=== PATIENT | female | born 1985 | race Caucasian/White ===

== ENCOUNTER 2017-02-23 11:42 | Day surgery (SDC) | payer OTHER ==
[~2017-02-23] VITALS: Ht 165.1 cm; Wt 170.6 kg
[~2017-02-23 11:42] MED LIST: "\\\"MUSCLE RELAXER\\\""; ACID CONTROL75 MG PO; BUSPAR10 MG PO; CLOTRIMAZOLE-BE15 GM; CYMBALTA30 MG PO; DESYREL12.5 MG; DICLOFENAC CREAM TP; DULOXETINE HCL30 MG PO; FERROUS GLUCON324 MG PO; GABAPENTIN300 MG; GABAPENTIN600 MG PO; HCTZ; HYDROCHLOROTHIA25 MG; HYDROCHLOROTHIA25 MG PO; IBUPROFEN800 MG PO; IMPLANON68 MG SQ; LIDOCAINE HCL20 ML MM; LYRICA150 MG PO; MACROBID100 MG PO; METHOCARBAMOL750 MG PO; MICROGESTIN FE1 EAC1 PO; MOTRIN600 MG PO; MOTRIN800 MG PO; NORFLEX100 MG; OXYCODONE-APAP1 EAC6; OXYCODONE-APAP1 EAC6 PO; PEN-VEE K,VEET500 MG PO; PERCOCET 5/31 TABLET PO; PREDNISONE10 M1 PO; PREDNISONE20 M1 PO; PREDNISONE20 MG PO; PRENATAL TABLE1 EAC3 PO; PRENATE MINI S1 EACH PO; PROMETHAZINE HC25 M1 PO; RANITIDINE HCL150 M1 PO; ROBITUSSIN100 MG/5 M PO; TIZANIDINE HCL2 MG PO; TIZANIDINE HCL4 M1 PO; TIZANIDINE HCL4 MG; VENTOLIN HFA18 GM IH; VIBRAMYCIN100 MG PO; VITAMIN B-625 MG PO; WATER PILL; WELLBUTRIN XL300 MG PO
[2017-02-23 12:18] LABS: HEMATOCRIT 44.4 % (36.0-46.0); MCHC 31.5 G/DL (30.0-36.0); MCV 82.4 FL (83-99); PLATELET COUNT 331 K/uL (156-360); RBC DIS.WIDTH-CV 13.2 % (11.8-14.6); RBC DIS.WIDTH-SD 39.9 % (39-53); RED BLOOD COUNT 5.39 M/uL (3.80-5.20)
[2017-02-23 12:20] VITALS: BP 125/58
[2017-02-23 17:05] VITALS: BP 111/53
[2017-02-23 17:51] VITALS: BP 105/56
== END 2017-02-23 17:50 | disposition home or self-care (01) ==
LOC: SDC 11:42
PROVIDERS: Neurological Surgery
PROC: 0JWT0MZ Revision of Stimulator Generator in Trunk Subcutaneous Tissue and Fascia, Open Approach (ICD-10-PCS; principal; 2017-02-23)
DX: T85.113A Breakdown (mechanical) of implanted electronic neurostimulator, generator, initial encounter (principal); M47.26 Other spondylosis with radiculopathy, lumbar region; M51.16 Intervertebral disc disorders with radiculopathy, lumbar region; G89.29 Other chronic pain; M96.1 Postlaminectomy syndrome, not elsewhere classified; E66.9 Obesity, unspecified; Z68.43 Body mass index [BMI] 50.0-59.9, adult; J45.909 Unspecified asthma, uncomplicated; Z87.891 Personal history of nicotine dependence
CPT/HCPCS: 85027; J0330; J0690; J1100; J2250; J2405; J2765; J3010; J3370; Q0175

== ENCOUNTER 2017-08-24 09:47 | Day surgery (SDC) | payer OTHER ==
[~2017-08-24] VITALS: Ht 165.1 cm; Wt 170.5 kg
[~2017-08-24 09:47] MED LIST changes: +METHOCARBAMOL500 MG PO; +NEURONTIN300 MG PO
[2017-08-24 10:27] VITALS: BP 107/68
[2017-08-24 10:27] LABS: HEMATOCRIT 43.4 % (36.0-46.0); HEMOGLOBIN 14.1 G/DL (11.9-15.5); MCH 26.7 PG (29.0-34.0); MCHC 32.5 G/DL (30.0-36.0); MCV 82.2 FL (83-99); PLATELET COUNT 277 K/uL (156-360); RBC DIS.WIDTH-CV 13.5 % (11.8-14.6); RBC DIS.WIDTH-SD 40.3 % (39-53); RED BLOOD COUNT 5.28 M/uL (3.80-5.20)
[2017-08-24 10:50] LABS: CHLORIDE 105 MEQ/L (99-109); CREATININE 0.7 MG/DL (0.6-1.3); GFR ESTIMATE (CALCULATED) > 59 mL/min/; GLUCOSE 111 mg/dL (70-99); POTASSIUM 4.4 MEQ/L (3.7-5.4); SODIUM 138 MEQ/L (136-147); UREA NITROGEN (BUN) 11 mg/dL (9-23)
[2017-08-24 14:15] VITALS: BP 121/58
[2017-08-24 15:02] VITALS: BP 129/69
== END 2017-08-24 15:03 | disposition home or self-care (01) ==
LOC: SDC 09:47
PROVIDERS: Neurological Surgery
PROC: 0JWT0MZ Revision of Stimulator Generator in Trunk Subcutaneous Tissue and Fascia, Open Approach (ICD-10-PCS; principal; 2017-08-24)
DX: T85.840A Pain due to nervous system prosthetic devices, implants and grafts, initial encounter (principal); Y75.3 Surgical instruments, materials and neurological devices (including sutures) associated with adverse incidents; M96.1 Postlaminectomy syndrome, not elsewhere classified; G89.4 Chronic pain syndrome; J45.909 Unspecified asthma, uncomplicated; Z87.891 Personal history of nicotine dependence; F41.9 Anxiety disorder, unspecified; M47.817 Spondylosis without myelopathy or radiculopathy, lumbosacral region
CPT/HCPCS: 80048; 85027; C1883; J0330; J0690; J1170; J2250; J2405; J3010; J3370; Q0175